=== PATIENT | male | born 1965 | race Hispanic/Latino ===

== ENCOUNTER 2021-07-17 23:20 | Emergency (ER) ==
--- NOTE | 2021-07-18 00:12 | ER ---
Nurse's Notes [facility] Name: Domo Kidd Age: 55 yrs Sex: Male : 1965 Arrival Date: 07/17/2021 Time: 23:24 Bed External Waiting Private MD: Diagnosis: ED Course: 07/17 23:24 Patient arrived in ED. mitch Administered Medications: No medications were administered Outcome: 07/18 00:10 Eloped from waiting room, before seeing physician as6 00:11 Patient left the ED. as6 Signatures: Roslyn Serna Ashby, RN RN as6
== END 2021-07-18 00:11 | disposition left against medical advice (07) ==
LOC: ER 23:20
DX: Z02.9 Encounter for administrative examinations, unspecified (principal)

== ENCOUNTER 2021-08-31 05:04 | Observation (INO) | payer OTHER ==
[2021-08-31] MEDS ORDERED: MAGNES/ALUMIN/SIMET 30ML UCUP ONE ×2 (05:35→05:40)
[2021-08-31] MEDS ORDERED: ONDANSETRON 4 MG/2 ML VIAL ONE ×2 (05:36→13:15)
[2021-08-31] MEDS ORDERED: MORPHINE 4 MG/ML SYR ONE (05:36)
[2021-08-31] MEDS ORDERED: PANTOPRAZOLE 40 MG INJ ONE ×2 (05:36→07:46)
[2021-08-31] MEDS ORDERED: LIDOCAINE VISCOUS 2% SOLN 15 ML UDC ONE (05:36)
[2021-08-31] MEDS ORDERED: NA CHLORIDE 0.9% 1,000 ML ONE (05:36)
[2021-08-31 05:43] LABS: Absolute Lymphocytes (CBC) 1.6 K/uL (0.7-4.9); Hematocrit 42.6 % (39.6-49.0); Lymphocytes % 15.4 % (15.3-44.8); MPV 8.9 fL (7.6-11.3); RBC Red Blood Cell Count 4.68 M/uL (4.33-5.43)
[2021-08-31 05:44] LABS: Protime INR 1.03
[2021-08-31 06:06] LABS: Albumin 3.7 g/dL (3.4-5.0); Bilirubin Direct 0.2 mg/dL (0-0.2); Bilirubin Total 0.7 mg/dL (0.2-1.0); Potassium 3.5 mmol/L (3.5-5.1); Protein, Total 7.7 g/dL (6.4-8.2); Troponin High Sensitivity 6.6 pg/mL (<58.9)
--- NOTE | 2021-08-31 07:00 | RAD REPORT ---
EXAM DESCRIPTION: US - Abdomen Exam Limited - 08/31/2021 5:43 am CLINICAL HISTORY: ABD PAIN COMPARISON: No comparisons FINDINGS: The gallbladder demonstrates no gallstones. Mild sludge is present. No gallbladder wall t hickening. The common bile duct is normal measuring 4 mm. Indistinctness of the gallbladder wall is p resent. The liver demonstrates no findings of intrahepatic biliary dilatation. Hepatic steatosis. IMPRESSION: Negative for cholelithiasis. Mild indistinctness around the gallbladder which could refl ect pericholecystic edema is noted. This is nonspecific and could be seen with underlying liver disea se. Correlate with LFTs.
--- NOTE | 2021-08-31 07:04 | RAD REPORT ---
EXAM DESCRIPTION: CTAbdomen Pelvis W Contrast - 08/31/2021 6:49 am CLINICAL HISTORY: ABD PAIN COMPARISON: No comparisons TECHNIQUE: CT of the abdomen and pelvis was performed. All CT scans are performed using dose optimization technique as appropriate and may include automated exposure control or mA/KV adjustment according to patient size. FINDINGS: Lower chest: No acute abnormality. Liver: Too small to characterize liver lesions which are likely benign. Biliary: No biliary ductal dilatation. Mild haziness surrounding gallbladder. Stomach: No significant focal abnormality. Duodenum: No significant focal abnormality. Pancreas: No significant abnormality. Spleen: No significant abnormality. Adrenal: No suspicious lesions. Kidney/ureter: No hydronephrosis. No renal calculi. Retroperitoneum: No retroperitoneal adenopathy. Vascular: No aneurysm. Bowel: No significant focal abnormality. Normal appendix. Peritoneum: No ascites or free air. Bladder: Grossly unremarkable. Reproductive: No mass. Bones: No acute fracture. Intramedullary lucy in the left femur. Other: n/a IMPRESSION: No definite acute intra-abdominal abnormality. Mild indistinctness or on the gallbladder is nonspecific could be related underlying liver disease. No gallstones are [facility]. If there is persistent clinical concern for gallbladder pathology, could consid er HIDA scan. Normal appendix.
--- NOTE | 2021-08-31 07:06 | RAD REPORT ---
EXAM DESCRIPTION: RAD - Chest Single View - 08/31/2021 5:52 am CLINICAL HISTORY: ABDOMINAL DISTENTION COMPARISON: Abdomen Pelvis W Contrast dated 08/31/2021 FINDINGS: Lines: None. Lungs: No evidence of edema or pneumonia. Low lung volumes. Pleural: No significant pleural effusions or pneumothorax. Cardiac: Enlarged cardiac silhouette which may be accentuated by low lung volumes Bones: No acute fractures. Other: IMPRESSION: No acute cardiopulmonary disease.
--- NOTE | 2021-08-31 07:37 | EDPHYS ---
Physician Documentation [facility] Name: Domo Kidd Age: 55 yrs Sex: Male : 1965 Arrival Date: 08/31/2021 Time: 05:05 Bed 28 Private MD: SHIRLEY Physician Shawn Solis HPI: 08/31 05:12 This 55 yrs old Male presents to ER via EMS with complaints of Abdominal Pain. adal 05:12 The patient presents with abdominal pain in the epigastric area, in the upper abdomen. adal Onset: The symptoms/episode began/occurred 1 day(s) ago. The symptoms do not radiate. Associated signs and symptoms: Pertinent positives: nausea. The symptoms are described as constant, crampy. Modifying factors: The symptoms are alleviated by nothing, the symptoms are aggravated by nothing. Severity of pain: At its worst the pain was moderate in the emergency department the pain is unchanged. The patient has not experienced similar symptoms in the past. Historical: - Allergies: 05:08 No Known Allergies; al4 - PSHx: 05:08 L femur; al4 - Immunization history:: Adult Immunizations up to date, Client reports receiving the 2nd dose of the Covid vaccine. - Social history:: Smoking status: Patient denies any tobacco usage or history of. ROS: 05:14 Constitutional: Negative for fever, chills, and weight loss, Eyes: Negative for injury, adal pain, redness, and discharge, ENT: Negative for injury, pain, and discharge, Neck: Negative for injury, pain, and swelling, Cardiovascular: Negative for chest pain, palpitations, and edema, Respiratory: Negative for shortness of breath, cough, wheezing, and pleuritic chest pain, Back: Negative for injury and pain, : Negative for injury, bleeding, discharge, and swelling, MS/Extremity: Negative for injury and deformity, Skin: Negative for injury, rash, and discoloration, Neuro: Negative for headache, weakness, numbness, tingling, and seizure, Psych: Negative for depression, anxiety, suicide ideation, homicidal ideation, and hallucinations, Allergy/Immunology: Negative for hives, rash, and allergies, Endocrine: Negative for neck swelling, polydipsia, polyuria, polyphagia, and marked weight changes, Hematologic/Lymphatic: Negative for swollen nodes, abnormal bleeding, and unusual bruising. 05:14 Abdomen/GI: Positive for abdominal pain, of the epigastric area, right upper quadrant and left upper quadrant. Exam: 05:14 Constitutional: This is a well developed, well nourished patient who is awake, alert, adal and in no acute distress. Head/Face: Normocephalic, atraumatic. Eyes: Pupils equal round and reactive to light, extra-ocular motions intact. Lids and lashes normal. Conjunctiva and sclera are non-icteric and not injected. Cornea within normal limits. Periorbital areas with no swelling, redness, or edema. ENT: Nares patent. No nasal discharge, no septal abnormalities noted. Tympanic membranes are normal and external auditory canals are clear. Oropharynx with no redness, swelling, or masses, exudates, or evidence of obstruction, uvula midline. Mucous membranes moist. Neck: Trachea midline, no thyromegaly or masses palpated, and no cervical lymphadenopathy. Supple, full range of motion without nuchal rigidity, or vertebral point tenderness. No Meningismus. Chest/axilla: Normal chest wall appearance and motion. Nontender with no deformity. No lesions are appreciated. Cardiovascular: Regular rate and rhythm with a normal S1 and S2. No gallops, murmurs, or rubs. Normal PMI, no JVD. No pulse deficits. Respiratory: Lungs have equal breath sounds bilaterally, clear to auscultation and percussion. No rales, rhonchi or wheezes noted. No increased work of breathing, no retractions or nasal flaring. Back: No spinal tenderness. No costovertebral tenderness. Full range of motion. Male : Normal genitalia with no discharge or lesions. Skin: Warm, dry with normal turgor. Normal color with no rashes, no lesions, and no evidence of cellulitis. MS/ Extremity: Pulses equal, no cyanosis. Neurovascular intact. Full, normal range of motion. Neuro: Awake and alert, GCS 15, oriented to person, place, time, and situation. Cranial nerves II-XII grossly intact. Motor strength 5/5 in all extremities. Sensory grossly intact. Cerebellar exam normal. Normal gait. Psych: Awake, alert, with orientation to person, place and time. Behavior, mood, and affect are within normal limits. 05:14 Abdomen/GI: Inspection: abdomen appears normal, Bowel sounds: normal, Palpation: mild abdominal tenderness, moderate abdominal tenderness, in the epigastric area, right upper quadrant and left upper quadrant, Liver: no appreciated palpable abnormalities, Hernia: not appreciated. 05:32 ECG was reviewed by the Attending Physician. [facility] Vital Signs: 05:06 Temp 97.9(O); al4 05:06 BP 163 / 93; Pulse 62; Resp 18 S; Pulse Ox 98% on R/A; Weight 84.82 kg (R); Height 5 al4 ft. 8 in. (172.72 cm) (R); 05:06 BP 163 / 93; Pulse 62; Resp 18 S; Pulse Ox 95% on R/A; al4 06:40 BP 141 / 86; Pulse 59; Resp 18 S; Pulse Ox 97% on R/A; al4 07:00 BP 146 / 92; Pulse 62; Resp 16; Pulse Ox 97% ; cb5 05:06 Body Mass Index 28.43 (84.82 kg, 172.72 cm) al4 MDM: 05:11 Patient medically screened. [facility] 05:16 Differential diagnosis: coronary artery disease, cholecystitis, Cholelithiasis, adal gastritis, gastroesophageal reflux disease, non-specific abd pain, pancreatitis, Peptic Ulcer Disease, Perf. Duodenal Ulcer, Pyelonephritis. Data reviewed: vital signs, nurses notes, lab test result(s), EKG, radiologic studies, CT scan, plain films. Data interpreted: hat and cap opener: rate is 62 beats/min, rhythm is regular, Pulse oximetry: on room air is 95 %. Test interpretation: by ED physician or midlevel provider: ECG, plain radiologic studies. Counseling: I had a detailed discussion with the patient and/or guardian regarding: the historical points, exam findings, and any diagnostic results supporting the discharge/admit diagnosis, the presence of at least one elevated blood pressure reading (>120/80) during this emergency department visit, lab results, radiology results, the need for outpatient follow up. 08/31 05:08 Order name: Basic Metabolic Panel [facility] 08/31 05:08 Order name: CBC with Diff; Complete Time: 06:11 [facility] 08/31 05:08 Order name: LFT's; Complete Time: 06:11 [facility] 08/31 05:08 Order name: Magnesium; Complete Time: 06:11 [facility] 08/31 05:08 Order name: NT PRO-BNP; Complete Time: 06:11 [facility] 08/31 05:08 Order name: PT-INR; Complete Time: 06:11 [facility] 08/31 05:08 Order name: Troponin HS; Complete Time: 06:11 [facility] 08/31 05:08 Order name: XRAY Chest (1 view); Complete Time: 07:18 [facility] 08/31 05:08 Order name: Lipase; Complete Time: 06:11 [facility] 08/31 05:08 Order name: US Abdomen Limited; Complete Time: 07:18 [facility] 08/31 05:08 Order name: CT Abd/Pelvis - IV Contrast Only; Complete Time: 07:18 [facility] 08/31 05:08 Order name: Basic Metabolic Panel; Complete Time: 06:11 [facility] 08/31 05:08 Order name: EKG; Complete Time: 05:09 [facility] 08/31 05:08 Order name: Cardiac monitoring; Complete Time: 05:30 [facility] 08/31 05:08 Order name: EKG - Nurse/Tech; Complete Time: 05:29 [facility] 08/31 05:08 Order name: IV Saline Lock; Complete Time: 05:30 [facility] 08/31 05:08 Order name: Labs collected and sent; Complete Time: 05:30 [facility] 08/31 05:08 Order name: O2 Per Protocol; Complete Time: 05:30 [facility] 08/31 05:08 Order name: O2 Sat Monitoring; Complete Time: 05:30 [facility] 08/31 07:48 Order name: CONS Physician Consult EDMS EC:32 Rate is 51 beats/min. Rhythm is regular. QRS [place] is Normal. NV interval is normal. QRS adal interval is normal. QT interval is normal. No Q waves. T waves are Normal. No ST changes noted. Clinical impression: Sinus bradycardia and No evidence of ischemia. Interpreted by me. Reviewed by me. Administered Medications: 05:47 Drug: NS 0.9% 1000 ml Route: IV; Rate: 1 bolus; Site: right antecubital; al4 05:56 Drug: Zofran (Ondansetron) 4 mg Route: IVP; Site: right antecubital; al4 06:55 Follow up: Response: No adverse reaction al4 05:57 Drug: ProTONIX (pantoprazole) 40 mg Route: IVP; Site: right antecubital; al4 06:55 Follow up: Response: No adverse reaction al4 05:57 Drug: GI Cocktail without - (Maalox Suspension 30 ml, Lidocaine Liquid 2 % 15 al4 ml) Route: PO; 06:55 Follow up: Response: No adverse reaction al4 05:57 Drug: morphine 4 mg Route: IVP; Site: right antecubital; al4 06:54 Follow up: Response: No adverse reaction; RASS: Alert and Calm (0) al4 07:45 Drug: morphine 2 mg Route: IVP; Site: right antecubital; vg1 07:47 Drug: ProTONIX (pantoprazole) 40 mg Route: IVP; Site: right antecubital; vg1 07:49 Drug: Zosyn (piperacillin-tazobactam) 3.375 grams Route: IVPB; Infused Over: 60 mins; vg1 Site: right antecubital; Disposition Summary: 08/31/21 07:36 Hospitalization Ordered Hospitalization Status: Observation adal Condition: Fair adal Problem: new adal Symptoms: have improved adal Bed/Room Type: Standard adal Provider: Matt Vickers(08/31/21 07:40) adal Location: [facility] ER HOLD(08/31/21 08:48) bd Room Assignment: ERHOLD-(08/31/21 08:48) bd Diagnosis - Abdominal pain, unspecified adal - Disease of biliary tract, unspecified adal - Gastro-esophageal reflux disease without esophagitis adal Discharge Instructions: - Discharge Summary Sheet adal - Food Choices for Gastroesophageal Reflux Disease, Adult adal - Esophagitis adal - Gastroesophageal Reflux Disease, Adult adal - Gastroesophageal Reflux Disease, Adult, [id number] adal - Indigestion, [id number] adal - Food Choices for Gastroesophageal Reflux Disease, Adult, [id number] adal Forms: - Medication Reconciliation Form adal - SBAR form [facility] Prescriptions: - Carafate 1 gram Oral Tablet - take 1 tablet by ORAL route 4 times per day take on an empty stomach, beginning adal on waking and last dose at bedtime; 100 tablet; Refills: 0, Product Selection Permitted - Protonix 40 mg Oral tablet,delayed release (DR/EC) - take 1 tablet by ORAL route every 12 hours; 60 tablet; Refills: 0, Product adal Selection Permitted - dicyclomine 20 mg Oral Tablet - take 1 tablet by ORAL route 4 times per day; 28 tablet; Refills: 0, Product adal Selection Permitted - ondansetron 4 mg Oral tablet,disintegrating - place 1 tablet by TRANSLINGUAL route 3 times per day; 20 tablet; Refills: 0, [facility] Product Selection Permitted Signatures: Dispatcher [employer] Rosmery Marie Corey, MD MD cha Garcia, Victoria RN RN vg1 Charli Jacobsen4 Corrections: (The following items were deleted from the chart) 07:40 07:36 Elisabeth Celaya [facility] 08:48 07:36 Telemetry/MedSurg (observation) [facility] 08:48 07:36 [facility]
--- NOTE | 2021-08-31 07:37 | ER ---
Nurse's Notes [facility] Name: Domo Kidd Age: 55 yrs Sex: Male : 1965 Arrival Date: 08/31/2021 Time: 05:05 Bed 28 Private MD: Diagnosis: Abdominal pain, unspecified;Disease of biliary tract, unspecified;Gastro-esophageal reflux disease without esophagitis Presentation: 08/31 05:06 Chief complaint: EMS states: patient called in for pulsating pain in upper abdomen. al4 patients stated that this usually happens after he eats bread but this episode is the worst. patient is recovering from a L femur fracture procedure done in June 2021. Coronavirus screen: At this time, the client does not indicate any symptoms associated with coronavirus-19. Ebola Screen: No symptoms or risks identified at this time. Initial Sepsis Screen: Does the patient meet any 2 criteria? No. Patient's initial sepsis screen is negative. Does the patient have a suspected source of infection? No. Patient's initial sepsis screen is negative. Risk Assessment: Do you want to hurt yourself or someone else? Patient reports no desire to harm self or others. Onset of symptoms was August 31, 2021. 05:06 Method Of Arrival: EMS al4 05:06 Acuity: SHANNEN 3 al4 Triage Assessment: 05:08 General: Appears in no apparent distress. uncomfortable, Behavior is calm, cooperative. al4 Pain: Complains of pain in abdomen Pain began 2 hours ago. EENT: No signs and/or symptoms were reported regarding the EENT system. Neuro: Level of Consciousness is awake, alert, obeys commands, Oriented to person, place, time, situation. Cardiovascular: Capillary refill < 3 seconds Patient's skin is warm and dry. Respiratory: Airway is patent Respiratory effort is even, unlabored, Respiratory pattern is regular, symmetrical. GI: Abdomen is non-distended, Abdomen is tender to palpation Reports upper abdominal pain, since 2 hours ago. : No signs and/or symptoms were reported regarding the genitourinary system. Derm: No signs and/or symptoms reported regarding the dermatologic system. Musculoskeletal: Range of motion: intact in all extremities, Reports femur fracture healing in process - patient had surgery this past June. Historical: - Allergies: 05:08 No Known Allergies; al4 - PSHx: 05:08 L femur; al4 - Immunization history:: Adult Immunizations up to date, Client reports receiving the 2nd dose of the Covid vaccine. - Social history:: Smoking status: Patient denies any tobacco usage or history of. Screenin:10 Abuse screen: Denies threats or abuse. Nutritional screening: No deficits noted. al4 Tuberculosis screening: No symptoms or risk factors identified. Fall Risk No fall in past 12 months (0 pts). Secondary diagnosis (15 points) impaired mobility, No IV (0 pts). Ambulatory Aid- None/Bed Rest/Nurse Assist (0 pts). Gait- Weak (10 pts.). Mental Status- Oriented to own ability (0 pts). Total Jernigan Fall Scale indicates No Risk (0-24 pts). Assessment: 05:10 General: see triage assessment. al4 05:10 Reassessment: Patient is alert, oriented x 3, equal unlabored respirations, skin al4 warm/dry/pink. patients and son at bedside. 06:05 Reassessment: urinal at bedside. patient aware of the need for a urine sample. al4 06:48 Reassessment: Patient is alert, oriented x 3, equal unlabored respirations, skin al4 warm/dry/pink. Patient is alert/active/playful, equal unlabored respirations, skin warm/dry/pink. 06:57 Reassessment: patient states he still does not think he could give a urine sample. al4 07:58 General: Appears in no apparent distress. uncomfortable. Pain: Complains of pain in vg1 epigastric area Pain currently is 10 out of 10 on a pain scale. Neuro: Level of Consciousness is awake, alert, obeys commands, Oriented to person, place, time, situation. Cardiovascular: Patient's skin is warm and dry. Respiratory: Airway is patent Respiratory effort is even, unlabored. GI: Abdomen is flat, non-distended, Bowel sounds present X 4 quads. Abdomen is tender to palpation in epigastric area Patient currently denies nausea, vomiting. : No signs and/or symptoms were reported regarding the genitourinary system. EENT: No signs and/or symptoms were reported regarding the EENT system. Derm: Skin is intact, is healthy with good turgor. Musculoskeletal: Circulation, motion, and sensation intact. Vital Signs: 05:06 Temp 97.9(O); al4 05:06 BP 163 / 93; Pulse 62; Resp 18 S; Pulse Ox 98% on R/A; Weight 84.82 kg (R); Height 5 al4 ft. 8 in. (172.72 cm) (R); 05:06 BP 163 / 93; Pulse 62; Resp 18 S; Pulse Ox 95% on R/A; al4 06:40 BP 141 / 86; Pulse 59; Resp 18 S; Pulse Ox 97% on R/A; al4 07:00 BP 146 / 92; Pulse 62; Resp 16; Pulse Ox 97% ; cb5 05:06 Body Mass Index 28.43 (84.82 kg, 172.72 cm) al4 ED Course: 05:05 Patient arrived in ED. wm 05:05 Shawn Solis MD is Attending Physician. adal 05:08 Triage completed. al4 05:10 Arm band placed on. al4 05:10 Patient has correct armband on for positive identification. Placed in gown. Bed in low al4 position. Call light in reach. Side rails up X2. Pulse ox on. NIBP on. 05:12 Charli Jacobsen is Primary Nurse. al4 05:43 US Abdomen Limited In Process Unspecified. EDMS 05:52 XRAY Chest (1 view) In Process Unspecified. EDMS 06:11 Basic Metabolic Panel Sent. al4 06:49 CT Abd/Pelvis - IV Contrast Only In Process Unspecified. EDMS 07:24 Elisabeth Celaya MD is Hospitalizing Provider. adal 07:40 Matt Vickers MD is Hospitalizing Provider. adal 09:36 No provider procedures requiring assistance completed. Patient admitted, IV remains in vg1 place. Administered Medications: 05:47 Drug: NS 0.9% 1000 ml Route: IV; Rate: 1 bolus; Site: right antecubital; al4 05:56 Drug: Zofran (Ondansetron) 4 mg Route: IVP; Site: right antecubital; al4 06:55 Follow up: Response: No adverse reaction al4 05:57 Drug: ProTONIX (pantoprazole) 40 mg Route: IVP; Site: right antecubital; al4 06:55 Follow up: Response: No adverse reaction al4 05:57 Drug: GI Cocktail without - (Maalox Suspension 30 ml, Lidocaine Liquid 2 % 15 al4 ml) Route: PO; 06:55 Follow up: Response: No adverse reaction al4 05:57 Drug: morphine 4 mg Route: IVP; Site: right antecubital; al4 06:54 Follow up: Response: No adverse reaction; RASS: Alert and Calm (0) al4 07:45 Drug: morphine 2 mg Route: IVP; Site: right antecubital; vg1 07:47 Drug: ProTONIX (pantoprazole) 40 mg Route: IVP; Site: right antecubital; vg1 07:49 Drug: Zosyn (piperacillin-tazobactam) 3.375 grams Route: IVPB; Infused Over: 60 mins; vg1 Site: right antecubital; Outcome: 07:36 Decision to Hospitalize by Provider. adal 09:36 Admitted to ER Hold. Please see [facility] for further documentation. vg1 09:36 Condition: good 09:36 Instructed on the need for admit. 12:42 Patient left the ED. cp Signatures: Dispatcher [employer] EDMS Shawn Solis MD MD cha Page, Corey, PA PA cp Madie Landon RN RN vg1 Aline Herrera Alexis al4 Marlee Pringle, RN RN cb5 Corrections: (The following items were deleted from the chart) 06:01 05:08 GI: Abdomen is non-distended, Abd is soft and non tender Reports upper abdominal al4 pain, since 2 hours ago al4 06:04 05:06 BP 163 / 93; Pulse 62bpm; Resp 18bpm; Spontaneous; Pulse Ox 98% RA; al4 al4 06:05 05:08 GI: Abdomen is non-distended, Abd is soft and non tender Reports upper abdominal al4 pain, since 2 hours ago al4 06:23 05:08 Pain: Complains of pain in abdomen al4 al4 06:24 05:08 Musculoskeletal: Range of motion: intact in all extremities, al4 al4
[2021-08-31] MEDS ORDERED: MORPHINE 2 MG/ML SYR ONE (07:46)
[2021-08-31] MEDS ORDERED: PIPERACIL/TAZO 3.375 GM VIAL IV ONE (07:46)
[2021-08-31] MEDS ORDERED: NA CHLORIDE 0.9% 100 ML IV ONE (07:46)
[2021-08-31] MEDS ORDERED: SODIUM CHLORIDE 0.9% 10ML INJ IV PRN (11:42)
[2021-08-31] MEDS ORDERED: MORPHINE 4 MG/ML SYR IV PRN (11:42)
[2021-08-31] MEDS ORDERED: ONDANSETRON 4 MG/2 ML VIAL IV PRN (11:42)
[2021-08-31] MEDS ORDERED: ACETAMINOPHEN 325 MG TABLET PO PRN (12:00)
[2021-08-31] MEDS ORDERED: LIDOCAINE 2% MPF 5 ML VIAL ONE (12:30)
[2021-08-31] MEDS ORDERED: propofoL 200 MG/20 ML VIAL IV ONE (12:30)
[2021-08-31] MEDS ORDERED: FENTANYL CITR 100 MCG/2 ML ONE ×2 (12:30→12:55)
[2021-08-31] MEDS ORDERED: ROCURONIUM 50 MG/5 ML VIAL IV ONE (12:30)
[2021-08-31] MEDS: BUPIVACAINE 0.5% Inj,MDV 50 mL VIAL ONE ×2 (12:33→13:19)
[2021-08-31] MEDS ORDERED: Ringers Lactate 1,000 ML IV ONE (12:34)
[2021-08-31] MEDS ORDERED: NA CIT/CITRIC AC 30 ML ORAL UDC ONE (12:36)
--- NOTE | 2021-08-31 12:46 | P.HP ---
Date of Service: 08/31/21 PC: This 55-year-old male presented to the emergency room with severe right upper quadrant abdominal pain for diagnosis and treatment. HPC: Patient has a fibular yesterday pain began to intensify, located in the right upper quadrant. Unrelenting. PSHx: Recent history for fractured femur PMHx: Negative Social Hx: No known allergies Sys R: No cough, wheeze, shortness of breath. [May have aspirated after his last surgery, was in the ICU, but no sequelae] no chest pain or palpitations. Denies any urinary complaints O/E: Awake alert vital signs are stable HEENT: No jaundice Chest: Chest movement equal bilaterally Abd: Tender in the upper midline epigastric region [place]: Intact Data: Shows sludge on ultrasound, CT sees again shows some fluid around the gallbladder Impression: Acute on chronic cholecystitis with sludge Plan: I'll taken the operating room for laparoscopic possible open cholecystectomy. The risks of this procedure have been discussed. The possibility of bleeding, infection, injury to bile ducts blood vessels and intestines has been described. The possible need for an open ended further surgeries and procedures was discussed. He understands and wants to proceed.
[2021-08-31] MEDS ORDERED: KETOROLAC 30 MG/ML INJ ONE (13:15)
[2021-08-31] MEDS ORDERED: dexAMETHasone 10 MG/ML VIAL ONE (13:15)
[2021-08-31] MEDS ORDERED: GLYCOPYRROLATE 0.2 MG/ML SYR ONE (13:25)
[2021-08-31] MEDS ORDERED: NEOSTIGMINE 1 MG/ML -5 ML ONE (13:27)
[2021-08-31 13:32] LABS: SARS-COV-2 RT PCR NEGATIVE (NEGATIVE)
[2021-08-31] MEDS ORDERED: LABETALOL 20 MG/4ML SYRINGE IV ONE (14:04)
--- NOTE | 2021-08-31 14:31 | P.OP ---
Preoperative diagnosis: Acute on chronic cholecystitis with cholelithiasis [sludge] Postoperative diagnosis: The same Primary procedure: Laparoscopic cholecystectomy Secondary procedure: Cholangiogram Other procedure(s): Tap block Anesthesia: General Estimated blood loss: Less than 10 cc Specimen: 1 gallbladder and contents Findings: Acute on chronic cholecystitis Operative Technique: The patient brought the operating room and placed supine on the table. After the induction of adequate general endotracheal anesthesia, there of the abdomen was prepped with a DuraPrep solution, and he was draped in usual aseptic manner. A subumbilical incision was made. This was brought down through the skin and subcutaneous tissue. The Visiport was used to enter the peritoneal cavity and created pneumoperitoneum to approximately 12 mmHg. Under direct vision a 5 mm trocar was placed in the upper midline, and 2 other 5 mm trochars on the right lateral side of the abdomen. The patient was then placed in reverse Trendelenburg. He was rolled to the left. We could visualize an acutely distended gallbladder in the right upper quadrant. There were adhesions to the serosal surface a lot of acute inflammation could be seen. Because of the distention it was necessary to aspirate the gallbladder contents using an aspirating needle. We can now place a grasper on the fundus. Another was placed on by Siddiqui's pouch. After dissecting off the thickened serosal adhesions and opening the area around the gallbladder we are able to isolate the cystic duct and artery. Having obtained the critical view a clip was placed between the gallbladder and the cystic duct. An opening was made into the cystic duct through which we change his normal cholangiogram. There was no evidence of any filling defects. The catheter balloon was then deflated and the catheter itself was easily able to pass into the duodenum. The catheter was now removed. Clips were placed on the distal portion of the cystic duct. The cystic duct was now fully transected. The cystic artery was clipped and divided. The gallbladder was dissected free from the liver bed, placed into an Endo Catch, and brought out through the umbilical trocar site. The abdomen was inspected to ensure adequate hemostasis. The irrigating fluid was aspirated from the peritoneal cavity. The patient was now placed flat on the OR table and attention was turned towards the umbilical trocar site. This was approximated using the Endo Close and an absorbable suture. The anterior abdominal wall was now tap blocks with 0.25% Marcaine. The pneumoperitoneum was collapsed, the trochars removed, and nile applied to the skin. At the end of the procedure he was in a stable condition was sent to the recovery room. Needle sponge instrument count were correct. Complications: None Transferred to: Recovery Room Condition: Good
[2021-08-31] MEDS ORDERED: HYDROCODONE/APAP 7.5/325 MG TAB PO PRN (14:36)
--- NOTE | 2021-08-31 15:27 | RAD REPORT ---
EXAM DESCRIPTION: RAD - Cholangiogram Oper-Xray Or - 08/31/2021 2:43 pm FINDINGS: There were 3 portable C-arm sequences submitted from a fluoroscopic assisted intraoperativ e cholangiogram. Fluoro time was 0.1 minutes with a cumulative dose of 3.47 mGy.
[2021-08-31 15:42] VITALS: BMI 28.3
[2021-08-31] MEDS: PIPER TAZO 3.375 GM in NA CHLORIDE 0.9% 100 ML IV SCH (16:06)
[2021-08-31] MEDS: D5 0.45 NS 1,000 ML IV SCH ×2 (16:06→19:42)
[2021-08-31] MEDS: PANTOPRAZOLE 40 MG INJ IVP SCH (21:15)
[2021-09-01] MEDS: PIPER TAZO 3.375 GM in NA CHLORIDE 0.9% 100 ML IV SCH ×2 (01:00→08:12)
[2021-09-01] MEDS: D5 0.45 NS 1,000 ML IV SCH ×2 (02:20→10:49)
[2021-09-01 05:41] LABS: Hematocrit 36.7 % (39.6-49.0); Lymphocytes % 10.8 % (15.3-44.8); MPV 8.8 fL (7.6-11.3); RBC Red Blood Cell Count 4.03 M/uL (4.33-5.43)
[2021-09-01 06:02] LABS: Albumin 2.8 g/dL (3.4-5.0); Bilirubin Direct 0.2 mg/dL (0-0.2); Bilirubin Total 0.6 mg/dL (0.2-1.0); Potassium 3.7 mmol/L (3.5-5.1); Protein, Total 6.2 g/dL (6.4-8.2)
[2021-09-01] MEDS ORDERED: PIPERACIL/TAZO 3.375 GM VIAL IV ONE (08:09)
[2021-09-01] MEDS: PANTOPRAZOLE 40 MG INJ IVP SCH (08:11)
[2021-09-01 09:58] VITALS: O2SAT 95
[2021-09-01 12:35] VITALS: BP 114/58; TEMP 97.8
--- NOTE | 2021-09-01 13:47 | P.DS ---
Admission Date: 08/31/21 Discharge Date: 09/01/21 Discharge Condition: GOOD Procedures: Laparoscopic cholecystectomy with cholangiogram, tap block Hospital Course: The patient presented the patient was seen in the emergency room. On clinical exam he had severe right upper quadrant abdominal pain. CT scan and ultrasound revealed acute on chronic cholecystitis with cholelithiasis. Later that day he was brought to the operating room where he underwent a laparoscopic cholecystectomy with a normal cholangiogram. He was admitted postoperatively for observation and pain control. Today he is up ambulating, tolerating a diet, and is anxious to be discharged. Vital Signs/Physical Exam: Temp Pulse Resp BP Pulse Ox 97.8 F 59 18 114/58 L 95 09/01/21 12:00 09/01/21 12:00 09/01/21 12:00 09/01/21 12:00 09/01/21 12:00 Laboratory Data at Discharge: WBC 9.60 K/uL (4.3-10.9) 09/01/21 05:30 Hgb 12.4 g/dL (13.6-17.9) L 09/01/21 05:30 Hct 36.7 % (39.6-49.0) L 09/01/21 05:30 Plt Count 193 K/uL (152-406) 09/01/21 05:30 PT 11.8 SECONDS (9.5-12.5) 08/31/21 05:27 INR 1.03 08/31/21 05:27 Sodium 141 mmol/L (136-145) 09/01/21 05:30 Potassium 3.7 mmol/L (3.5-5.1) 09/01/21 05:30 BUN 9 mg/dL (7-18) 09/01/21 05:30 Creatinine 0.92 mg/dL (0.55-1.3) 09/01/21 05:30 Glucose 153 mg/dL (74-106) H 09/01/21 05:30 Magnesium 2.0 mg/dL (1.8-2.4) 08/31/21 05:27 Total Bilirubin 0.6 mg/dL (0.2-1.0) 09/01/21 05:30 AST 26 U/L (15-37) 09/01/21 05:30 ALT 56 U/L (12-78) 09/01/21 05:30 Alkaline Phosphatase 79 U/L (45-117) 09/01/21 05:30 Lipase 69 U/L (73-393) L 09/01/21 05:30 Home Medications: NK [No Home Meds] 08/31/21 Physician Discharge Instructions: Ambulated home, continue incentive spirometry. You may shower. Change dressings as needed. Pain medicine as directed. Any questions or problems return to the emergency room, or contact my office. See me next Saturday. Diet: Regular Activity: Ad janae Followup: Matt Vickers MD [ACTIVE - CAN ADMIT] -
== END 2021-09-01 15:46 | disposition home health service (06) ==
LOC: ER 05:04 → ERHOLD 08:25 → 2ND 14:34
PROVIDERS: ADMIT Surgery; ATTEND Surgery
PROC: BF00YZZ Plain Radiography of Bile Ducts using Other Contrast (ICD-10-PCS; 2021-08-31)
PROC: 0FT44ZZ Resection of Gallbladder, Percutaneous Endoscopic Approach (ICD-10-PCS; principal; 2021-08-31 12:30)
DX: K80.12 Calculus of gallbladder with acute and chronic cholecystitis without obstruction (principal); K21.9 Gastro-esophageal reflux disease without esophagitis; Z20.822 Contact with and (suspected) exposure to COVID-19
CPT/HCPCS: 93005; 85025 ×2; 80048 ×2; 36415 ×2; 83735; 85610; 80076 ×2; 88304; 84484; 83690 ×2; 83880; 0240U; 74177; 74300; 71045; 76705; 96375; 96374; 99285; 47563; Q9967 ×2; J2704; J2543 ×5; C9113 ×4; J3010 ×2; J1100; J2270; J2710; J7799 ×3; J7120; J7030; J2405 ×2; G0378 ×3